=== PATIENT | female | born 1995 | race African-American/Black ===

== ENCOUNTER 2018-06-11 15:41 | Emergency (ER) | payer OTHER ==
--- NOTE | 2018-06-11 15:44 | PDOC ---
Rapid Medical Evaluation Time Seen by Provider: 06/11/18 15:42 Medical Evaluation: Allergies Allergy/AdvReac Type Severity Reaction Status Date / Time No Known Allergies Allergy Verified 09/15/15 18:48 06/11/18 15:43 I have performed a brief in-person evaluation of this patient. The patient presents with a chief complaint of: flu-like symptoms x3 days Pertinent physical exam findings: 2+ tonsils. +tonsillar erythema. No lesions or exudates present. I have ordered the following: urine The patient will proceed to the ED for further evaluation. Discharge Disposition - Diagnosis Influenza-like symptoms - Referrals - Patient Instructions - Post Discharge Activity
[2018-06-11 15:46] VITALS: BP 127/77; PULSE 82; TEMP 98.6; BMI 35.4
[2018-06-11] MEDS ORDERED: ACETAMINOPHEN 325 MG TABLET (FP) PO ONE (16:13)
--- NOTE | 2018-06-11 16:16 | PDOC ---
History of Present Illness - General Chief Complaint: Cold Symptoms Stated Complaint: SICK Time Seen by Provider: 06/11/18 15:42 History Source: Patient Exam Limitations: No Limitations - History of Present Illness Initial Comments: 06/11/18 16:13 sore throat for 2 days , had flu vaccine yesterday no fever dry cough noted at night. Pt has no PMHX or allergies. Severity: reports: mild Past History - Past Medical History Allergies/Adverse Reactions: Allergies Allergy/AdvReac Type Severity Reaction Status Date / Time No Known Allergies Allergy Verified 09/15/15 18:48 Home Medications: Ambulatory Orders Naproxen [Naprosyn -] 500 mg PO BID #14 tablet 09/15/15 COPD: No - Suicide/Smoking/Psychosocial Hx Smoking History: Never smoked Have you smoked in the past 12 months: No Information on smoking cessation initiated: No Hx Alcohol Use: No Drug/Substance Use Hx: No Substance Use Type: None Review of Systems - Review of Systems Able to Perform ROS?: Yes Is the patient limited Thai proficient: No Constitutional: No: Symptoms Reported HEENTM: Yes: Symptoms Reported Respiratory: Yes: Symptoms reported *Physical Exam - Vital Signs Last Vital Signs Temp Pulse Resp BP Pulse Ox 98.6 F 82 17 127/77 100 06/11/18 15:43 06/11/18 15:43 06/11/18 15:43 06/11/18 15:43 06/11/18 15:43 - Physical Exam General Appearance: Yes: Nourished, Appropriately Dressed HEENT: positive: EOMI, REYNOLD, Pharyngeal Erythema, Tonsillar Erythema. negative : Tonsillar Exudate Neck: positive: Supple. negative: Tender, Lymphadenopathy (R), Lymphadenopathy (L) Respiratory/Chest: positive: Lungs Clear, Normal Breath Sounds. negative: Chest Tender Cardiovascular: positive: Regular Rhythm, Regular Rate Gastrointestinal/Abdominal: positive: Normal Bowel Sounds, Soft Musculoskeletal: positive: Normal Inspection Extremity: positive: Normal Capillary Refill, Normal Inspection, Normal Range of Motion Integumentary: positive: Normal Color, Dry, Warm Neurologic: positive: Fully Oriented, Alert, Normal Mood/Affect, Normal Response , Motor Strength 5/5 Medical Decision Making - Medical Decision Making 06/11/18 16:14 cc: sore throat , dry cough no fever no chills no abd pain will check for strep tylenol now pt in no distress speaking full sentences *DC/Admit/Observation/Transfer Diagnosis at time of Disposition: Pharyngitis - Discharge Dispostion Disposition: HOME Condition at time of disposition: Good - Referrals - Patient Instructions Printed Discharge Instructions: DI for Viral Pharyngitis Additional Instructions: gargle with warm salt water 4-5 times a day take tylenol 650mg every 4-6hrs for fever drink pleanty of water tea with honey and lemon any over the counter throat lozengers of your liking for sore throat - Post Discharge Activity
[2018-06-11] MEDS ORDERED: ACETAMINOPHEN 325 MG TABLET (FP) ONE (16:17)
[2018-06-11 18:37] LABS: THROAT:GRP A STREP ANTIGEN Negative
== END 2018-06-11 17:08 | disposition home or self-care (01) ==
LOC: JERFT 15:41
DX: J02.9 Acute pharyngitis, unspecified (principal)
CPT/HCPCS: 87070; 87880; 99281-25